=== PATIENT | female | born 2000 | race Caucasian/White ===

== ENCOUNTER 2024-01-17 17:13 | Emergency (ER) | payer MEDICAID ==
[~2024-01-17] VITALS: Ht 165.1 cm; Wt 130.0 kg
[2024-01-17 17:17] VITALS: O2SAT 100
[2024-01-17 18:03] LABS: HCG SCREEN NEGATIVE
[2024-01-17 18:08] LABS: TROPONIN I HIGH SENSITIVITY < 4 ng/L (3.0-34)
[2024-01-17] MEDS: METOCLOPRAMIDE HCL 10MG/2ML VIAL IV ONE (18:19)
[2024-01-17 18:31] VITALS: TEMP 36.66960
[2024-01-17] MEDS: LACTATED RINGERS 1,000 ML IV ONE (21:06)
[2024-01-17 22:21] VITALS: BP 105/58; PULSE 86; RESP 15; O2SAT 99
== END 2024-01-17 22:21 | disposition home or self-care (01) ==
LOC: ER 17:23
DX: R55 Syncope and collapse (principal); F12.10 Cannabis abuse, uncomplicated
CPT/HCPCS: 84703; 84484; 36415; 70450; 72125; 96361; 96374; 99285; J2765; J7120; Z7610 ×3